=== PATIENT | male | born 1955 | race Caucasian/White ===

== ENCOUNTER 2016-08-14 07:08 | Day surgery (SDC) | payer OTHER ==
[2016-08-10 14:16] VITALS: BMI 27.3
--- NOTE | 2016-08-13 10:30 | HP ---
[facility]ellite [facility] - Chief Complaint Chief Complaint: left knee pain - Past Medical History Allergies/Adverse Reactions: Allergies Allergy/AdvReac Type Severity Reaction Status Date / Time aminophylline Allergy Low Blood Verified 08/10/16 14:01 Pressure CRAB Allergy Swelling Uncoded 08/10/16 14:01 LOBSTER Allergy Swelling Uncoded 08/10/16 14:01 SHRIMP Allergy SWELLING Uncoded 08/10/16 14:01 MOUTH - Current Medications Current Medications: Medication Instructions Recorded Albuterol Sulfate [Proair 90 mcg IH ASDIR PRN 06/09/16 Respiclick] Finasteride [Proscar] 5 mg PO DAILY 06/09/16 Montelukast Na [Singulair -] 10 mg PO DAILY 06/09/16 Omeprazole 20 mg PO DAILY 06/09/16 Fluticasone/Vilanterol [Breo 1 each IH DAILY 06/16/16 Ellipta 200-25 Mcg INH] Acetaminophen [Tylenol -] 1,000 mg PO Q6H PRN 08/10/16 Albuterol 0.083% Nebulizer Lila 1 neb NEB QID PRN 08/10/16 [Ventolin 0.083%] Amlodipine Besylate/Benazepril 10 - 20 each PO DAILY 08/10/16 [Lotrel 5-40 mg Capsule] Aspirin [ASA -] 81 mg PO DAILY 08/10/16 Atorvastatin Ca [Lipitor] 20 mg PO DAILY 08/10/16 Ferrous Sulfate [Feosol] 325 mg PO DAILY 08/10/16 Oxycodone HCl/Acetaminophen 1 tab PO BID PRN MDD 8 08/10/16 [Percocet 5-325 mg Tablet] Satellite Physical Exam - Physical Examination General Appearance: Well Nourished, Well Developed, Alert & Oriented x3 ENT: Clear Lung: Normal air movement Heart: Regular rate & rhythm Extremities: Other (left knee- + swelling, + ttp , decr rom, nvi xrays show severe medial djd) Neurological: Intact, Alert, Oriented Satellite Impression/Plan - Impression/Plan Impression: left knee medial djd Operative Procedure: left medial ramos ukr Date to be Performed: 08/14/16
[2016-08-14] MEDS ORDERED: ROPIVICAINE 0.2%/MORPH PF/KETOROLAC - 51ML DISP.SYRINGE IA ONE ×3 (07:20→11:47)
[2016-08-14] MEDS ORDERED: CELECOXIB 200 MG CAPSULE PO ONE (07:20)
[2016-08-14] MEDS ORDERED: GABAPENTIN 300 MG CAPSULE (FP) PO ONE (07:20)
[2016-08-14] MEDS ORDERED: TRANEXAMIC ACID 1000 MG/10 ML VIAL IVPUSH ONE (07:20)
[2016-08-14] MEDS ORDERED: CEFAZOLIN 2 GM/D5W 50 ML IVPB ONE (07:20)
[2016-08-14] MEDS ORDERED: oxyCODONE HCL 10 MG SUSTAINED ACTING TABLET PO ONE (07:20)
[2016-08-14] MEDS ORDERED: ALBUTEROL SO4 0.083% IH SOL 2.5 MG/3 ML VIAL.NEB. NEB ONE (08:49)
[2016-08-14] MEDS ORDERED: MIDAZOLAM HCL 2 MG/2 ML SINGLE DOSE VIAL ONE (09:16)
[2016-08-14] MEDS ORDERED: ROPIVACAINE HCL 0.5% 30ML VIAL ONE (09:16)
[2016-08-14] MEDS ORDERED: DEXAMETHASONE SOD PHOSPHATE/PF 10 MG/ML SDV ONE (09:16)
[2016-08-14] MEDS ORDERED: BUPIVACAINE HCL/PF 0.5% (5MG/ML) 10 ML VIAL ONE (10:04)
[2016-08-14] MEDS ORDERED: ceFAZolin SODIUM 1 GM VIAL ONE (10:18)
[2016-08-14] MEDS ORDERED: THROMBIN (BOVINE) 5,000 UNIT VIAL TP ONE ×2 (10:18→11:02)
[2016-08-14] MEDS ORDERED: GELATIN, ABSORBABLE 100 EACH SPONGE TP ONE (10:19)
[2016-08-14] MEDS ORDERED: TRANEXAMIC ACID 1000 MG/10 ML VIAL ONE (10:39)
[2016-08-14] MEDS ORDERED: PROPOFOL 20 ML ONE (11:28)
[2016-08-14] MEDS ORDERED: ONDANSETRON 4 MG/2 ML VIAL IVPB PRN (12:01)
[2016-08-14] MEDS ORDERED: MAG HYDROX/AL HYDROX/SIMETH 30 ML UNIT-DOSE CUP PO PRN (12:01)
[2016-08-14] MEDS ORDERED: ALBUTEROL SO4 0.083% IH SOL 2.5 MG/3 ML VIAL.NEB. NEB PRN (12:02)
[2016-08-14] MEDS ORDERED: PATIENT'S OWN MEDICATION (NON-FORMULARY) (Albuterol Sulfate [Proair Respiclick] 90 MCG) IH PRN (12:02)
--- NOTE | 2016-08-14 12:05 | OP ---
Operative Note - Note: Operative Date: 08/14/16 ([facility]) Pre-Operative Diagnosis: left knee medial djd Operation: left medial ramos ukr Post-Operative Diagnosis: Same as Pre-op Surgeon: Carlos Eduardo Boudreaux Cleaner And Polisher: Ahsan Cary Anesthesiologist/ORTHOPAEDIC PHYSICIAN ASSISTANT: Kyle Zuluaga Anesthesia: Spinal, Local Specimens Removed: bone fragments Estimated Blood Loss (mls): 100 Operative Report Dictated: Yes
[2016-08-14] MEDS ORDERED: LACTATED RINGERS SOLUTION 1,000 ML IV SCH (12:15)
[2016-08-14] MEDS ORDERED: oxyCODONE HCL 5 MG TABLET PO PRN (12:26)
--- NOTE | 2016-08-14 12:46 | SPEC ---
DATE OF OPERATION: 08/14/2016 PREOPERATIVE DIAGNOSIS: Degenerative joint disease, left knee. POSTOPERATIVE DIAGNOSIS: Degenerative joint disease, left knee. PROCEDURE: Left medial unicompartmental knee replacement with robotic-assisted navigation (MAKOplasty) and patelloplasty. SURGEON: Carlos Eduardo Boudreaux M.D. OPERATIONS LABEL CLERK: JERRELL Sanchez ANESTHESIA: Spinal and regional. CLOSURE: Medial PHAN components with a No. 4 femur, No. 5 tibia, 8 mm polyethylene, No. 1 Vicryl to fascia, 0 and 2-0 subcutaneous, and 3-0 Monocryl subcuticular to skin with skin glue for skin, 4-0 undyed Vicryl for pin sites. ESTIMATED BLOOD LOSS: Negligible. COMPLICATIONS: None. CONDITION: To recovery room in stable condition. DESCRIPTION OF OPERATIVE PROCEDURE: Patient was taken to the operating room. Spinal and femoral block anesthesia was administered by the anesthesiologist. IV Kefzol and TXA were administered prophylactically prior to the case. A well-padded pneumatic tourniquet was placed on the left proximal thigh. The left lower extremity was prepped and draped in the usual sterile fashion. A 6 cm longitudinal incision was made along the medial retinaculum from mid patella toward the tibial tubercle. Hemostasis was achieved using Bovie cautery. Sharp dissection was carried down to the level of the capsule, which was opened the entire length of incision. A subperiosteal dissection in the anterior medial proximal tibia. Periosteal elevator was used to facilitate this dissection. Partial fat pad excision was performed to gain visualization. A femoral and tibial checkpoint were malleted into place. Two bicortical pins were drilled through small stab incisions into the femur 1 handbreadth above the patella. Two bicortical pins were drilled into the tibia 1 handbreadth below the tibial tubercle through small stab incisions as well. To these, pins were attached to clamp and the navigation arrays. The knee was then registered with the navigation device by ascertaining the center of rotation of the hip, both the medial and lateral malleoli, at approximately 50 points on the tibia and femur. Registration was within PHAN parameters, being less than half a millimeter. At this time, the medial osteophytes on both the femur and tibia were removed by use of rongeur. The knee was taken through a range of motion and with stressing the medial compartment open at 0, 30, 60, 90 and 120 degrees. Stress points were obtained in order to develop a flexion/extension and a tightness/looseness graph. The robotic navigation device obtained a virtual tracking of the knee and found that the traction was in excellent position. The components were manipulated virtually in order to obtain a flexion/extension, tightness/looseness graph which was then +/- 1 mm. The robot was then brought into the field and registered with the navigation device. The robot was then used to fredo the bone on both the femur and the tibia to the specifications and direction of the navigation device. All excess bone and osteophytes and cartilage were removed, including the medial meniscus. Care was taken to protect the MCL throughout the case. The trial components were then placed into the knee with the appropriate polyethylene plastic trial liner. The knee was taken through a range of motion and the graph on the navigation device was then used again to confirm ideal position of the components and ideal tightness/looseness of the components. The trial components were removed, along with the checkpoints and the array. The knee was exsanguinated with an Esmarch bandage and tourniquet inflated to 175 mmHg. The knee was post-antibiotic irrigated and then dried and then Avitene and Gelfoam were placed to aid in hemostasis. The real components were then cemented in using modern generation cement techniques with antibiotics, cement and pressurization. All excess cement was removed. The knee was thoroughly inspected to remove any excess cement and bone fragments. The real polyethylene component was then clipped into place. Range of motion revealed excellent range of motion and good tensioning throughout. The knee was post-antibiotic irrigated. The fascia was closed using 2-0 Vicryl interrupted suture. The tourniquet was deflated. Total tourniquet time was less than 30 minutes. Hemostasis was obtained. Another dose of TXA was administered. The subcutaneous was closed with 2-0 Vicryl, 3-0 Monocryl subcuticular for skin. A pain cocktail was infused throughout the soft tissue. The pin sites were irrigated and closed with 4-0 Vicryl and skin glue was used for all incisions. Sterile Aquacel dressing was placed on all incisions followed by a dressing from the toes to the thigh. Patient was transferred to the recovery room in stable condition. No complications. Zaki [id number]
[2016-08-14] MEDS: ACETAMINOPHEN 1000 MG/100 ML VIAL (NON FORMULARY) IVPB ONE ×2 (13:00→15:11)
[2016-08-14] MEDS: oxyCODONE HCL 5 MG TABLET PO PRN ×2 (15:48→19:44)
[2016-08-14] MEDS: CEFAZOLIN 2 GM/D5W 50 ML IVPB SCH (18:12)
[2016-08-14] MEDS: ACETAMINOPHEN 325 MG TABLET (FP) PO SCH (19:43)
[2016-08-14] MEDS: GABAPENTIN 300 MG CAPSULE (FP) PO SCH (21:15)
[2016-08-14] MEDS: SENNOSIDES/DOCUSATE COMBO (SENNA PLUS) TABLET (UD) PO SCH (21:15)
[2016-08-14] MEDS ORDERED: ATORVASTATIN CA 20 MG TABLET (FP) PO SCH (22:00)
[2016-08-14] MEDS: oxyCODONE HCL 10 MG SUSTAINED ACTING TABLET PO SCH (22:13)
[2016-08-15] MEDS: ACETAMINOPHEN 325 MG TABLET (FP) PO SCH ×3 (01:44→15:31)
[2016-08-15] MEDS: oxyCODONE HCL 5 MG TABLET PO PRN ×4 (01:44→15:30)
[2016-08-15] MEDS: CEFAZOLIN 2 GM/D5W 50 ML IVPB SCH (01:45)
[2016-08-15] MEDS ORDERED: ASPIRIN 325 MG TABLET PO SCH (08:00)
[2016-08-15] MEDS: oxyCODONE HCL 10 MG SUSTAINED ACTING TABLET PO SCH (09:37)
[2016-08-15] MEDS: GABAPENTIN 300 MG CAPSULE (FP) PO SCH (09:40)
[2016-08-15] MEDS: SENNOSIDES/DOCUSATE COMBO (SENNA PLUS) TABLET (UD) PO SCH (09:40)
[2016-08-15] MEDS ORDERED: LISINOPRIL 20 MG TABLET (FP) PO SCH (10:00)
[2016-08-15] MEDS ORDERED: MONTELUKAST NA 10 MG TABLET PO SCH (10:00)
[2016-08-15] MEDS ORDERED: FINASTERIDE 5 MG TABLET (FP) PO SCH (10:00)
[2016-08-15] MEDS ORDERED: PATIENT'S OWN MEDICATION (NON-FORMULARY) (Fluticasone/Vilanterol [Breo Ellipta 200-25 Mcg IH SCH (10:00)
[2016-08-15] MEDS ORDERED: PANTOPRAZOLE 40 MG TABLET (FP) PO SCH (10:00)
[2016-08-15] MEDS ORDERED: FERROUS SO4 325 MG TABLET (FP) PO SCH (10:00)
[2016-08-15] MEDS ORDERED: amLODIPine BESYLATE 5 MG TABLET (FP) PO SCH (10:00)
[2016-08-15] MEDS ORDERED: PATIENT'S OWN MEDICATION (NON-FORMULARY) (Ferrous Sulfate [Feosol] 325 MG) PO SCH (10:00)
[2016-08-15] MEDS ORDERED: PATIENT'S OWN MEDICATION (NON-FORMULARY) (Amlodipine Besylate/Benazepril [Lotrel 5-40 Mg C PO SCH (10:00)
[2016-08-15] MEDS ORDERED: MULTIVITAMINS (DAILY MVI) TABLET (FP) PO SCH (10:00)
[2016-08-15 14:31] VITALS: BP 140/64; PULSE 88; TEMP 99.2
== END 2016-08-15 17:30 | disposition home health service (06) ==
LOC: FASU 07:08 → FM/S 07:20 → FASU 08-15 17:30
PROVIDERS: ATTEND Orthopaedic Surgery
PROC: 8E0YXBZ Computer Assisted Procedure of Lower Extremity (ICD-10-PCS; 2016-08-14)
PROC: 8E0Y0CZ Robotic Assisted Procedure of Lower Extremity, Open Approach (ICD-10-PCS; 2016-08-14)
PROC: 0SRD0L9 Replacement of Left Knee Joint with Medial Unicondylar Synthetic Substitute, Cemented, Open Approach (ICD-10-PCS; principal; 2016-08-14 09:30)
DX: M17.12 Unilateral primary osteoarthritis, left knee (principal)
CPT/HCPCS: 20985; 27446; C1776; S2900; 73560-TC-LT; 94010; 94760; 97116-GP; 97161-GP